=== PATIENT | male | born 1930 | race African-American/Black ===

== ENCOUNTER 2017-09-08 06:39 | Emergency (ER) | payer OTHER ==
[~2017-09-08] VITALS: Ht 172.7 cm; Wt 79.4 kg
[~2017-09-08 06:39] MED LIST: ACCUNEB SO1.25 MG/1 INH; ACETAMINOPHEN325 M1 PO; ACID CONTROL20 MG PO; ALLOPURINOL 10100 M1 PO; ANTACID650 MG PO; APAP650; ASPIR 8181 MG PO; ASPIRIN81 M2; ATORVASTATIN CA40 MG PO; AUGMENTIN 875875 MG PO; DEPAKOTE SPRIN125 MG PO; DUONEB 2.5-0.5 M3 ML INH; FERRO-TIME325 MG; IMDUR 30 MG TAB30 M1 PO; LASIX 40 MG TAB40 M2 PO; LEXAPRO 10 MG T10 M1 PO; MIDODRINE HCL 55 M1 PO; MIDODRINE HCL10 MG PO; MUCINEX TA600 MG/TA2 PO; NORCO 5-325 TA1 EACH PO; PLAVIX 75 MG TA75 MG PO; PROTONIX40 M1 PO; PULMICORT0.5 MG/22 INH; RENA-VITE TABL0.8 MG PO; RENVELA800 MG PO; SEROQUEL 12.512.5 MG PO
[2017-09-08 08:30] VITALS: BP 116/48
== END 2017-09-08 08:30 ==
LOC: ER 06:39
DX: S01.01XA Laceration without foreign body of scalp, initial encounter (principal); I12.0 Hypertensive chronic kidney disease with stage 5 chronic kidney disease or end stage renal disease; N18.6 End stage renal disease; G30.9 Alzheimer's disease, unspecified; F02.80 Dementia in other diseases classified elsewhere, unspecified severity, without behavioral disturbance, psychotic disturbance, mood disturbance, and anxiety; Z87.891 Personal history of nicotine dependence; E87.1 Hypo-osmolality and hyponatremia; W19.XXXA Unspecified fall, initial encounter; Y93.89 Activity, other specified; Y92.89 Other specified places as the place of occurrence of the external cause; Y99.8 Other external cause status